=== PATIENT | male | born 1970 | race Two or more races ===

== ENCOUNTER 2021-05-02 14:14 | Emergency (ER) | payer OTHER ==
[~2021-05-02] VITALS: Ht 180.3 cm; Wt 106.6 kg
[2021-05-02 14:16] VITALS: BP 143/82
[2021-05-02 16:04] LABS: Urine Bacteria FEW /hpf (None Seen); Urine Blood 2+ /uL (Negative); Urine Mucus FEW (None Seen); Urine Specific Gravity 1.026 (1.001-1.035); Urine WBC 1 /hpf (0 - 3)
[2021-05-02] MEDS ORDERED: KETOROLAC TROMETH 60MG/2ML VIAL IM ONE (16:30)
[2021-05-02] MEDS ORDERED: TAM04C PO (16:39)
[2021-05-02] MEDS ORDERED: TRAM-297 PO (16:39)
== END 2021-05-02 16:44 | disposition home or self-care (01) ==
LOC: ER 14:14
DX: G89.29 Other chronic pain (principal); M54.50 Low back pain, unspecified; N20.0 Calculus of kidney
CPT/HCPCS: 74176; 81001; 81002; 96372; 99284; J1885

== ENCOUNTER 2023-09-07 18:50 | Emergency (ER) | payer OTHER ==
[~2023-09-07] VITALS: Ht 180.3 cm; Wt 116.3 kg
[~2023-09-07 18:50] MED LIST: TAMS-35 PO; TRAM-297 PO
[2023-09-07 19:38] LABS: Urine Bacteria None Seen /hpf (None Seen)
[2023-09-07 19:51] LABS: Urine Blood Negative /uL (Negative); Urine Clarity Clear (Clear); Urine Color Light-Yellow (Yellow); Urine Mucus FEW (None Seen); Urine Protein, UAD Negative (Negative); Urine Specific Gravity 1.019 (1.001-1.035); Urine Urobilinogen Normal (Negative); Urine WBC 1 /hpf (0 - 3); Urine pH 6.5 (5.0-9.0)
[2023-09-07 20:07] LABS: Basophils # (auto) 0.3 10 ^3/uL (0-0.2); Basophils % (auto) 2.7 % (0.0-2.0); Eosinophils # (auto) 0.3 10 ^3/uL (0-0.8); Eosinophils % (auto) 3.1 % (0.0-7.0); Hematocrit 46.8 % (41.0-53.0); Hemoglobin 16.3 g/dL (13.5-17.5); Lymphocytes # (auto) 4.2 10 ^3/uL (0.4-5.4); Lymphocytes % (auto) 41.9 % (10.0-50.0); Mean Corpuscular Hemoglobin 32.7 pg (28.0-32.0); Mean Corpuscular Hgb Conc. 34.9 g/dL (32.0-36.0); Mean Corpuscular Volume 93.7 fL (80.0-100.0); Monocytes # (auto) 0.9 10 ^3/uL (0-1.3); Monocytes % (auto) 8.9 % (0.0-12.0); Neutrophils # (auto) 4.3 10 ^3/uL (1.6-8.6); Neutrophils % (auto) 43.4 % (37.0-80.0); Nucleated Red Blood Cells % 0.1 %; Red Cell Distribution Width 14.1 % (11.8-14.3); White Blood Cell 9.9 10^3/uL (4.4-10.8)
[2023-09-07 20:21] LABS: Chloride 107 mmol/L (98-107); Potassium 3.6 mmol/L (3.5-5.1); Sodium 138 mmol/L (136-145)
[2023-09-07 20:22] LABS: Anion Gap 5 (5-15); Calcium 9.2 mg/dL (8.7-10.4); Carbon Dioxide 26 mmol/L (20-30)
[2023-09-07 20:27] LABS: BUN/Creatinine Ratio 8.4 (10.0-20.0); Blood Urea Nitrogen 8 mg/dL (9-23); Glucose 108 mg/dL (74-106); Lipase 36 U/L (12-53)
[2023-09-07] MEDS ORDERED: NAP500T GT (20:37)
[2023-09-07] MEDS ORDERED: TAMS-35 PO (20:37)
[2023-09-07] MEDS: KETOROLAC TROMETH 60MG/2ML VIAL IM ONE (20:57)
[2023-09-07 20:59] VITALS: BP 172/80; PULSE 64; RESP 16; TEMP 98.4; O2SAT 94
== END 2023-09-07 21:00 | disposition home or self-care (01) ==
LOC: ER 18:50
DX: R10.30 Lower abdominal pain, unspecified (principal); Z87.442 Personal history of urinary calculi
CPT/HCPCS: 36415; 74176; 80048; 81001; 83690; 85025; 96372; 99285; J1885